=== PATIENT | female | born 1980 | race Hispanic/Latino ===

== ENCOUNTER → 2020-12-03 12:43 | Outpatient (CLI) | payer BC, SELFPAY | PROVIDERS: PCP Family Medicine; Referring Provider Family Medicine; Visit Provider Family Medicine | DX: G56.20 Lesion of ulnar nerve, unspecified upper limb (principal) | CPT/HCPCS: 95886; 95909 ==

== ENCOUNTER → 2022-10-28 13:48 | Outpatient (CLI) | payer OTHER, SELFPAY ==
--- NOTE | 2022-10-28 | DI.RAD.S_ITS ---
PROCEDURE: XR HIP W PEL IF DONE BILAT 2V INDICATIONS: BILATERAL HIP PAIN TECHNIQUE: AP pelvis with lateral view(s) of the both hip(s). COMPARISON: None. FINDINGS: Bones: No fractures or dislocations. Pelvic ring appears intact. No suspicious bony lesions. Soft tissues: The visualized bowel gas pattern is normal. No suspicious soft tissue calcifications. IMPRESSION: No acute osseous abnormality. Dictated by: Joyce Patton M.D. on 10/28/2022 at 17:11 Approved by: Joyce Patton M.D. on 10/28/2022 at 17:12
== END ==
PROVIDERS: PCP Nurse Practitioner Family; Referring Provider Nurse Practitioner Family; Visit Provider Nurse Practitioner Family
DX: M25.551 Pain in right hip (principal); M25.552 Pain in left hip
CPT/HCPCS: 73522

== ENCOUNTER → 2022-11-10 14:40 | Outpatient (CLI) | payer OTHER, SELFPAY ==
--- NOTE | 2022-11-10 | DI.MRI.S_ITS ---
PROCEDURE: MR HIP RT WO CON INDICATIONS: BILATERAL HIP pain TECHNIQUE: Noncontrast coronal T1 spin echo and STIR through the bony pelvis. Coronal and axial T2 fast spin echo with fat saturation, sagittal T1 spin echo, and oblique axial T2 fast spin echo with fat saturation through the hip. COMPARISON: [facility], CR, XR HIP W PEL IF DONE BILAT 2V, 10/28/2022, 13:59. FINDINGS: Image quality: Excellent. Bones and joints: There is mild periarticular osteophyte formation at the bilateral hip joints. Bone marrow of the pelvic ring and proximal femurs show normal signal throughout. No intraosseous lesions or fractures. No avascular necrosis of the femoral heads. The visualized lower lumbar spine appears normally aligned. Tendons and ligaments: The gluteus medius and minimus tendons appear intact, without associated muscle atrophy. The nearby proximal iliotibial band also appears intact. The iliopsoas tendon appears intact, without adjacent bursal fluid collections or evidence for impingement syndrome. The origin of the hamstring tendon is intact at the ischial tuberosity, as well as the associated sacrotuberous ligament. The straight and reflected heads of the rectus femoris muscle origin appear intact, as well as the conjoint tendon. The ligamentum teres appears intact where visualized. Labrum and cartilage: Amorphous high signal intensity diffusely throughout the right hip labrum. Cartilage surface of the femoral head appears of normal thickness. The alpha angle of the femur is within normal limits at less than 55 degrees. Soft tissues: Visualized muscles demonstrate normal bulk and internal signal. Quadratus femoris muscle demonstrates no internal edema to suggest ischiofemoral impingement. The proximal sciatic neurovascular bundle appears normal adjacent to the hamstring tendons. No free pelvic fluid. Bladder wall thickness is normal. Genitourinary structures and bowel loops appear normal where visualized. IMPRESSION: 1. 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 Dictated by: Willy Schulz M.D. on 11/10/2022 at 16:18 Transcribed by: ANNA on 11/10/2022 at 16:19 Approved by: Willy Schulz M.D. on 11/10/2022 at 16:47
--- NOTE | 2022-11-10 | DI.MRI.S_ITS ---
PROCEDURE: MR HIP LT WO CON INDICATIONS: BILATERAL HIP pain TECHNIQUE: Noncontrast coronal T1 spin echo and STIR through the bony pelvis. Coronal and axial T2 fast spin echo with fat saturation, sagittal T1 spin echo, and oblique axial T2 fast spin echo with fat saturation through the hip. COMPARISON: [facility], MR, MR HIP RT WO CON, 11/10/2022, 15:07. FINDINGS: Image quality: Excellent. Bones and joints: Periarticular osteophyte formation at the bilateral hip joints. Bone marrow of the pelvic ring and proximal femurs show normal signal throughout. No intraosseous lesions or fractures. No avascular necrosis of the femoral heads. The visualized lower lumbar spine appears normally aligned. Tendons and ligaments: The gluteus medius and minimus tendons appear intact, without associated muscle atrophy. The nearby proximal iliotibial band also appears intact. The iliopsoas tendon appears intact, without adjacent bursal fluid collections or evidence for impingement syndrome. The origin of the hamstring tendon is intact at the ischial tuberosity, as well as the associated sacrotuberous ligament. The straight and reflected heads of the rectus femoris muscle origin appear intact, as well as the conjoint tendon. The ligamentum teres appears intact where visualized. Labrum and cartilage: Amorphous high signal intensity throughout the left hip labrum. Cartilage surface of the femoral head appears of normal thickness. The alpha angle of the femur is within normal limits at less than 55 degrees. Soft tissues: Visualized muscles demonstrate normal bulk and internal signal. Quadratus femoris muscle demonstrates no internal edema to suggest ischiofemoral impingement. The proximal sciatic neurovascular bundle appears normal adjacent to the hamstring tendons. No free pelvic fluid. Bladder wall thickness is normal. Genitourinary structures and bowel loops appear normal where visualized. IMPRESSION: 1. Left hip osteoarthritis associated with left hip labral tearing. Dictated by: Willy Schulz M.D. on 11/10/2022 at 16:19 Transcribed by: ANNA on 11/10/2022 at 16:20 Approved by: Willy Schulz M.D. on 11/10/2022 at 16:51
== END ==
PROVIDERS: PCP Nurse Practitioner Family; Referring Provider Nurse Practitioner Family; Visit Provider Nurse Practitioner Family
DX: M16.0 Bilateral primary osteoarthritis of hip (principal); S73.102A Unspecified sprain of left hip, initial encounter; S73.101A Unspecified sprain of right hip, initial encounter; M25.551 Pain in right hip; M25.552 Pain in left hip
CPT/HCPCS: 73721

== ENCOUNTER → 2024-07-18 13:37 | Outpatient (CLI) | payer OTHER, SELFPAY ==
--- NOTE | 2024-07-18 13:38 | DI.US.S_ITS ---
PROCEDURE: US PELVIC COMPLETE INDICATIONS: Menorrhagia and deep dyspareunia TECHNIQUE: Real-time scanning was performed of the pelvic organs, with image documentation. Additional endovaginal scanning was necessary due to incomplete visualization of the adnexal and endometrial structures by transabdominal scanning. COMPARISON: None. FINDINGS: Uterus: Uterus is anteverted and normal in size at 5.2 x 5.8 x 10.3 cm. The myometrium is homogeneous. The endometrium measures 12.2 mm combined thickness. No uterine fibroids found. Ovaries: The right ovary measures 2.7 x 1.7 x 2.1 cm, with a calculated ovarian volume of 4.9 cc. The left ovary could not be seen due to bowel gas. The ovaries have a normal sonographic appearance. Less than 12 follicles can be seen in each ovary. No adnexal masses are seen. Other: No pathologic free abdominal or pelvic fluid. IMPRESSION: Normal appearing uterus and right ovary, nonvisualization of the left ovary due to overlying bowel gas. Dictated by: Rosendo Tavarez M.D. on 07/19/2024 at 7:33 Approved by: Rosendo Tavarez M.D. on 07/19/2024 at 7:35
== END ==
PROVIDERS: PCP Student in an Organized Health Care Education/Training Program; Referring Provider Obstetrics & Gynecology; Visit Provider Obstetrics & Gynecology
DX: N92.0 Excessive and frequent menstruation with regular cycle (principal); N94.10 Unspecified dyspareunia
CPT/HCPCS: 76830; 76856

== ENCOUNTER → 2024-09-12 09:33 | Outpatient (CLI) | payer OTHER, SELFPAY ==
--- NOTE | 2024-09-12 09:37 | DI.RAD.S_ITS ---
PROCEDURE: XR ELBOW LT MIN 3V INDICATIONS: SWELLING, MASS AND LUMP, LEFT UPPER LIMB TECHNIQUE: 3 views of the elbow were acquired. COMPARISON: None. FINDINGS: Bones: There are no osseous abnormalities. Elbow joint: Normal in width and alignment without arthritic change. There are no effusions. Soft tissues: There is mild diffuse soft swelling more prominent anteriorly. IMPRESSION: Normal elbow. Consider MRI for persistent or worrisome soft tissue mass. These are not typically well seen on plain film . Dictated by: Rickey Lynne M.D. on 09/12/2024 at 12:10 Approved by: Rickey Lynne M.D. on 09/12/2024 at 12:11
== END ==
LOC: RAD 09:36
PROVIDERS: PCP Student in an Organized Health Care Education/Training Program; Referring Provider Student in an Organized Health Care Education/Training Program; Visit Provider Student in an Organized Health Care Education/Training Program
DX: R22.32 Localized swelling, mass and lump, left upper limb (principal)
CPT/HCPCS: 73080

== ENCOUNTER 2024-10-03 07:42 | Day surgery (SDC) | payer OTHER, SELFPAY ==
[2024-08-21 08:27] VITALS: BMI 32.2
[2024-10-03] VITALS (20 sets, daily range): BP systolic 81–130; BP diastolic 46–86; PULSE 54–102; RESP 10–20; TEMP 36.6–37.2; O2SAT 90–99; BMI 35.1
--- NOTE | 2024-10-03 | PATH_ITS ---
[facility] Accession Number: [id number] No. of containers..01 Tissue . 01 Material submitted: . uterus - UTERUS, CERVIX AND FALLOPIAN TUBES . 01 Diagnosis: UTERUS, CERVIX, AND FALLOPIAN TUBES, LAPAROSCOPIC TOTAL HYSTERECTOMY, BILATERAL SALPINGECTOMY (WEIGHT 151 GRAMS): Cervix with no significant histomorphologic abnormality. Endocervix with no significant histiomorphologic abnormality. Secretory endometrium; negative for significant atypia. Myometrium with no significant histomorphologic abnormality. Uterine serosa with benign serosal inclusion cysts. Longer fallopian tube, complete cross-sections; negative for significant atypia. [place] fallopian tube, complete cross-sections, negative for significant atypia. [facility] 10/09/2024 1522 Local . 01 Electronically signed: . Brenda Curtis MD, Pathologist NPI- [id number] . 01 Gross description: . Received in formalin with two identifiers and uterus, cervix, and fallopian tubes, is an intact uterus (151 grams, 10.4 cm superior to inferior, 7.4 cm medial to lateral, 5.3 cm anterior to posterior), with attached cervix (3.4 x 3.0 cm), and two detached unoriented fimbriated fallopian tubes (5.3 x 0.9 cm and 4.9 x 0.7 cm), with no additional adnexa. . The ectocervix is mora and wrinkled with a patulous os 1.0 cm in diameter. The serosa is mora with a pale cyst like area on the fundus 1.1 x 0.6 cm. No additional lesions are identified. The anterior cervical margin is inked blue while the posterior paracervical margin is inked black. . The endocervical canal has mora herringbone mucosa and measures 3.6 cm in length. The endometrial cavity is 2.7 cm from cornu to cornu, and 5.8 cm in length with pink-mora lush endometrium that averages 0.2 cm thick. The myometrium is pink-mora and moderately trabecular up to 2.2 cm in maximum thickness with no lesions identified. . Both tubes have violaceous, smooth serosa with no cysts identified, and the lumen are stellate and unremarkable. . Italian Teacher sections are submitted as follows: A1: Anterior cervix. A2: Posterior cervix. A3: Anterior full thickness section. A4: Posterior full thickness section. A5: Area of cyst like serosa. A6: Longer fallopian tube to include one-half of bisected fimbriae and cross-sections. A7: [place] fallopian tube to include one-half of bisected fimbriae and cross-sections. ([id number]) /[facility]ONA 10/05/2024 2142 Local . 01 Pathologist provided ICD-10: N81.10, N39.3 . 01 CPT . 098406 Specimen Comment: A courtesy copy of this report has been sent to [phone] Performed at: [address] [facility] [address], [place], [place] [id number] MD Brendon Shukla MD Phone: [phone]
[2024-10-03] MEDS: ACETAMINOPHEN 325 MG TABLET 975 MG PO (07:54)
[2024-10-03] MEDS: CELECOXIB 200 MG CAPSULE PO (07:55)
[2024-10-03] MEDS: LACTATED RINGERS 1,000 ML 42 ML IV (07:55)
[2024-10-03] MEDS: GABAPENTIN 300 MG CAPSULE PO (07:55)
[2024-10-03] MEDS: FAMOTIDINE 20 MG/2 ML VIAL IV (08:26)
--- NOTE | 2024-10-03 08:50 | PM.PREOP ---
Pre-operative Note COVID-19 COVID-19 status: Not tested Interval Note History & Physical reviewed/Exam performed by Physician: Yes Changes to H&P: No
[2024-10-03] MEDS: CEFAZOLIN 2 GM/100 ML PREMIX 100 ML IV (09:26)
--- NOTE | 2024-10-03 10:01 | SUR.OPER ---
Lithotomy on padded OR bed. [place] Pad Positioner under torso. Head on pillow, arms padded and tucked at sides. Legs secured in padded yellow fins stirrups. Safety strap secured.
[2024-10-03] MEDS: BUPIVACAINE 0.5% W/ EPI (PF) 30 ML VIAL INJ (10:10)
--- NOTE | 2024-10-03 13:14 | P.OP_ITS ---
Operative Date/Time/Diagnoses Date of procedure: 10/03/24 Time of procedure: 09:30 Pre-op diagnosis: Cystocele Uterovaginal prolapse, incomplete Menorrhagia Dysmenorrhea Dyspareunia Post-op diagnosis: same Procedure & Clinicians Procedure: Procedures Operation Date: 10/03/24 09:00 Actual Procedure Side Surgeon p Laparoscopic Total Hysterectomy with bilateral salpingectomy, s Laparoscopic uterosacral ligamentvault suspension s Laparoscopic enterocele repair Emile Jones MD s Anterior Colporrhaphy Emile Jones MD s Mid-urethral sling placement with cystoscopy Emile Jones MD Indications: shivani is a 43-year-old , LMP 07/02/2024, who presents for her Pap and well- woman exam. Patient experienced menarche at age 14 and has had 2 vaginal births as well as a single section for breech. Menses have been regular throughout her reproductive years and continue to be regular but have become much heavier over the last 6-12 months. This includes passage of clots and occasional accidents/overflow. In addition she has had more in the way of pelvic cramping and recently over the last few months has developed deep dyspareunia which she has never experienced previously. Patient was treated for abnormal Paps in her 20s for which she underwent LEEP but all Paps since that time have been normal/negative according to the patient. She performs her breast self-examinations and has not noted any significant changes. She did have a breast biopsy in 2016 and had mammogram performed in 2021. She has no family history of breast cancer. She does have bilateral breast implants which are asymptomatic. Patient's pelvic pain with intercourse is deep in the pelvis and lasts for several hours after intercourse. She does not experienced postcoital bleeding or intermenstrual spotting. She is having occasional vasomotor symptoms, and brain fog. Review of systems is also positive for stress urinary incontinence which has been present since her 2nd vaginal . The patient does Kegel exercises but these have been of little benefit. We had an extended discussion regarding options for evaluating and treating her menorrhagia, dyspareunia, MISAEL symptoms, and pelvic organ prolapse. After our discussions and consideration of all options available, patient would very much like to proceed with total laparoscopic hysterectomy with bilateral salpingectomy, laparoscopic uterosacral ligament vault suspension, anterior repair, and placement of mid urethral sling with cystoscopy. She presents today for her scheduled surgery. Surgeon: Emile Jones Securities Analyst: Farideh Beltran Anesthesia Type: General Operative Notes Findings: Uterus is upper limits of normal size with diffuse enlargement and serosal lesions suggestive of adenomyosis. Fallopian tubes appear to be normal as do the ovaries. There was a single small endometrial implant in the anterior cul-de-sac which was removed with the surgical specimen. Stage II uterovaginal prolapse is noted along with stage 2-3 cystocele. Enterocele is also noted at the time of laparoscopy and repaired. The remainder of the abdomen and pelvis were normal to laparoscopic inspection. Closure Type: primary Specimen(s): left tube, right tube and uterus Applied: catheter Estimated blood loss (mL): 100 Blood products transfused: none Procedure in detail: With the patient in modified dorsal lithotomy position preparations were made by prepping and draping the patient in usual manner for vaginal surgery and insertion of Dunlap catheter. A pre-surgical time-out was then taken in accordance with [facility] [place] policy. A bivalve speculum was then placed in the vagina and the cervix visualized. A weighted speculum was inserted in the vagina and the anterior vaginal wall inspected. A Dunlap catheter was inserted in the bladder and the mid urethra was identified by palpation of the Dunlap bulb. Once the mid urethra had been identified, 2 Allis clamps were placed and the area of incision infiltrated with 0.25% Marcaine with epinephrine. A 2 cm longitudinal incision of the vaginal mucosa overlying the mid urethra was then made and using Metzenbaum scissors the dissection was carried lateral on both sides so as to be able to safely introduce the retropubic tension-free vaginal tape. The TVT needle was placed 1st on the right side followed by placement of a left up through the suprapubic skin. The needle tips were brought out through the skin and remained in place while the Dunlap catheter was removed and cystoscopy performed with findings as noted above. The TVT needles were then brought up through the suprapubic incisions and removed with suture scissors. The mid urethral sling was then appropriately positioned under the mid urethra and the plastic sleeves removed from the TVT on ce it was in correct position. The redundant portion TVT material was then excised at the skin line of the suprapubic incisions. Correct positioning of the TVT was then confirmed and the vaginal incision closed with 3-0 chromic in a running locking stitch. Pressure was maintained on the retropubic tissues for 5 minutes so as to reduce the risk subsequent bleeding or bruising. The suprapubic incisions were then closed with skin glue and inappropriate dressing was applied. The midline of the anterior vaginal mucosa was then infiltrated with 0.5% Marcaine with epinephrine and a longitudinal incision was made. The vaginal mucosa and muscularis were then dissected free on both sides to permit placement of plicating stitches in 3 layers using 2-0 Vicryl interrupted. The redundant portion of the vaginal mucosa anteriorly was then excised and the vaginal mucosa was closed with 0 Vicryl interrupted stitches. The anterior lip of the cervix was then grasped with a single-tooth tenaculum. The uterus was sounded to 7 cm, the endocervical canal dilated slightly, and a [facility] uterine manipulator with a small colpotomy cup was placed. The umbilicus was then infiltrated with 0.5% Marcaine with epinephrine. A 1 cm umbilical incision was made transversely and a Veress needle was used to insufflate the abdominal cavity with carbon dioxide. Once the abdomen was appropriately insufflated, a 5 mm trocar and sleeve were then placed through the umbilical incision. The scope was placed through the trocar and the initial assessment of the intra-abdominal contents carried out. A 2nd and 3rd 5 mm port was then placed 1st in the right mid quadrant from then the left mid quadrant by infiltration of the skin and subcutaneous tissues, a 1 cm transverse incision and insertion of the 5 mm bl adeless port. A 4th 5 mm trocar was introduced deep in the right lower quadrant in a similar fashion. Using a 4 puncture technique, the abdomen and pelvis were inspected laparoscopy and photographically documented. The uterosacral ligaments were identified on both sides and the lateral edges of the uterosacral ligaments were marked with small dots created by monopolar cautery on cutting current at 20 w so as to be able to identify the lateral margins of the uterosacral ligaments at the time of uterosacral vault suspension. Uterus is mobilized with the VCare manipulator and attention turned to the left adnexa. The distal tube was then grasped and the fimbria varicose divided after coagulation with the PowerSeal device. The dissection was then carried out toward the cornua and the fallopian tube amputated. The tube was removed through a 5 mm port and dissection was then carried down using the PowerSeal device so as to divide the utero-ovarian ligament and the round ligament with b jasmin and sharp dissection of the broad down to the level of the uterine artery. The uterine artery was then skeletonized after development of a bladder flap, coagulated, and divided. Once hemostasis was assured on the left side attention was turned to the right and the tube, utero-ovarian ligament, round ligament, and broad ligament were dissected in a fashion exactly the same as it had been on the left. The right uterine artery was then visualized after skeletonization and coagulated and divided. The uterus was seen to raul after coagulation of both your arteries and the cup was identified through the vaginal muscularis at its insertion with the body of the cervix. Circumferential excision of the vaginal cup was accomplished without difficulty using monopolar current and the uterus mobilized. The uterus was then removed through the vagina and the vaginal cuff was closed with a 2-0 Stratafix suture introduced through the vaginal canal and incorporating the distal aspects of the uterosacral ligaments on both sides. Hemostasis was excellent, the abdomen was re-insufflated, and the pelvis inspected laparoscopically. Using 2-0 Ethibond suture, 2 sutures were placed on either side so as to incorporate the more proximal portions of the uterosacral ligament on each side to the vaginal cuff. Each suture was tied securely in place with extracorporeal knot pusher. After performance of the uterosacral ligament vault suspension, the presence of a significant enterocele was obvious and therefore a Halban culdoplasty was performed with 2-0 Ethibond sutures. The pelvis was inspected for any abnormality or bleeding, and the ureters were each seen to be peristalsing freely. 20 cc of ropivacaine were instilled into the posterior cul-de-sac. With complete hemostasis assured, the pneumoperitoneum was vented and the ports removed. All of the 5 mm ports were then closed with 4-0 Monocryl on the skin using inverted interrupted sutures. Skin glue was placed and after the glue was dried, an appropriate dressing was applied. Speculum exam showed no vaginal bleeding with excellent suspension of the vaginal apex and anterior vaginal wall. The posterior vaginal wall had m inimal laxity in was not felt to warrant repair at this point. The case was then terminated, the patient awakened, and then transferred to PACU after having tolerated the procedure well. Complications: none Post-operative Condition: stable Disposition: PACU Plan for aftercare: Routine postoperative care with follow-up planned for 2 weeks postop
[2024-10-03] MEDS: fentaNYL 100 MCG/2 ML INJ IV (13:19)
[2024-10-03] MEDS: hydrOXYzine 50 MG/ML INJ 25 MG IM (13:19)
[2024-10-03] MEDS: OXYCODONE IR 5 MG TABLET PO ×3 (13:24→22:05)
[2024-10-03] MEDS: LACTATED RINGERS 1,000 ML 100 ML IV (14:44)
--- NOTE | 2024-10-03 15:12 | PC.NURSE ---
Patient up to the floor, she is resting comfortably. She has 4 lapsites to her lower abdomen and they are all cdi. She has a conroy catheter putting out clear and yellow urine. Patients obed pad has minimal spotting of red blood. She is lying supine. BS cta, 3L of oxygen as patient has some sleep apnea. at bedside.
[2024-10-03] MEDS: ACETAMINOPHEN 325 MG TABLET 650 MG PO (18:12)
[2024-10-03] MEDS: DOCUSATE 100 MG CAPSULE 200 MG PO (20:07)
[2024-10-03] MEDS: KETOROLAC 30 MG/ML VIAL IV (20:07)
[2024-10-03] MEDS: ZOLPIDEM 5 MG TABLET PO (22:05)
[2024-10-04] MEDS: LACTATED RINGERS 1,000 ML 100 ML IV (01:01)
[2024-10-04] MEDS: ACETAMINOPHEN 325 MG TABLET 650 MG PO ×3 (01:02→11:57)
[2024-10-04] MEDS: KETOROLAC 30 MG/ML VIAL IV ×2 (01:02→08:04)
[2024-10-04 08:00] VITALS: BP 133/82; PULSE 75; RESP 16; TEMP 37.1; O2SAT 99
[2024-10-04] MEDS: DOCUSATE 100 MG CAPSULE 200 MG PO (08:04)
--- NOTE | 2024-10-04 08:40 | PC.NURSE ---
Addendum entered by Kasandra More R.N. 10/04/24 11:38: Patient unable to void, she bladder scanned for 572, Dr. Jones notified and he states to put the conroy back in and do some leg bag teaching with patient on discharge as she will be going home with the catheter. Conroy is back in and patient tolerated this well. It was a bi traumatic and uncomfortable for her, she was given tylenol and oxycodone for discomofort. is in room and attentive to patients needs. Original Note: Patient is up ambulating in her room. She has 4 lapsites that are dressed with allevyn and one by umbilicus has steri strips. She complains of discomfort at 3/10, given iv toradol and stool softners. She is eating her breakfast now. After her first void we will do a pvr.
[2024-10-04] MEDS: OXYCODONE IR 5 MG TABLET PO (11:57)
--- NOTE | 2024-10-04 12:15 | PM.DS.IH.1 ---
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 Patient experienced menarche at age 14 and has had 2 vaginal births as well as a single section for breech. Menses have been regular throughout her reproductive years and continue to be regular but have become much heavier over the last 6-12 months. This includes passage of clots and occasional accidents/overflow. In addition she has had more in the way of pelvic cramping and recently over the last few months has developed deep dyspareunia which she has never experienced previously. Patient was treated for abnormal Paps in her 20s for which she underwent LEEP but all Paps since that time have been normal/negative according to the patient. She performs her breast self-examinations and has not noted any significant changes. She did have a breast biopsy in 2016 and had mammogram performed in 2021. She has no family history of breast cancer. She does have bilateral breast implants which are asymptomatic. Patient's pelvic pain with intercourse is deep in the pelvis and lasts for several hours after intercourse. She does not experienced postcoital bleeding or intermenstrual spotting. She is having occasional vasomotor symptoms, and brain fog. Review of systems is also positive for stress urinary incontinence which has been present since her 2nd vaginal . The patient does Kegel exercises but these have been of little benefit. We had an extended discussion regarding options for evaluating and treating her menorrhagia, dyspareunia, MISAEL symptoms, and pelvic organ prolapse. After our discussions and consideration of all options available, patient would very much like to proceed with total laparoscopic hysterectomy with bilateral salpingectomy, laparoscopic uterosacral ligament vault suspension, anterior repair, and placement of mid urethral sling with cystoscopy. She presents today for her scheduled surgery. Discharge Providers Provider Date of admission: 10/03/2024 Discharge Date: 10/04/24 Primary care physician: Lucio Mckoy MD Discharge provider: Emile Jones MD Summary Hospital Course Discharge Diagnosis: Uterovaginal prolapse Cystocele Stress urinary incontinence Abnormal vaginal bleeding Enterocele Postoperative urinary retention Status post total laparoscopic hysterectomy with bilateral salpingectomy, laparoscopic uterosacral ligament vault suspension, laparoscopic enterocele repair, anterior colporrhaphy, mid urethral sling placement with cystoscopy Hospital Course: Sara was admitted on the morning of 10/03/2024 and underwent an uneventful total laparoscopic hysterectomy with bilateral salpingectomy, laparoscopic uterosacral ligament vault suspension, laparoscopic enterocele repair, anterior colporrhaphy, mid urethral sling placement with cystoscopy. Full details of this procedure is well summarized on my operative note of that date. Following surgery the patient has done extremely well with prompt return of bowel function, she is ambulating independently, tolerating a regular diet, and her pain is well controlled with oral pain medication. She was unable to successfully void on the 1st morning after surgery and Dunlap catheter was replaced. She was discharged to home in an afebrile normotensive condition after counseling regarding precautionary symptoms, limitations activity, and plans for follow-up which will be in 5 days. She was provided with instructions regarding maintenance of indwelling Dunlap as well as use of a leg bag with her Dunlap. She will return on 10/08/2024 for catheter removal and instruction regarding straight catheterization if needed following catheter removal. Medications at discharge will include Cipro 500 mg p.o. b.i.d. x7 days for UTI prophylaxis following catheterization, and oxycodone 5 mg tabs, 1 p.o. Q 4-6 hours as needed for pain, dispensed 15 with no refills. Status at Discharge Cognitive/behavioral status at discharge: oriented Functional status at discharge: independent ambulation Overall status at discharge: patient is progressing back to baseline Time Spent with Patient Time spent: Less than 30 minutes Exam Vital Signs (past 8 hours): - 10/04/24 08:00 Temperature 98.7 F Pulse Rate 75 Respiratory Rate 16 Blood Pressure 133/82 Pulse Oximetry 99 Oxygen Flow Rate 0 Oxygen Delivery Method Nasal Cannula Oxygen Flow Rate 0 Const General: cooperative and comfortable Nutritional Appearance: average body habitus Orientation: alert and oriented x3 HENMT Head: normal to inspection, atraumatic and abrasion Ears: hearing grossly normal bilaterally Face and sinus: face symmetric Eyes General: appearance normal, both eyes and all related structures Conjunctivae: conjunctivae normal Sclera: sclerae normal EOM: EOM intact bilaterally Neck Neck: normal visual inspection Resp Effort & Inspection: normal respiratory effort and able to speak in complete sentences Auscultation: clear to auscultation bilaterally Cardio Rate: regular rate Rhythm: regular rhythm Heart Sounds: S1 normal, S2 normal and no murmurs GI Inspection: normal to inspection and incision (Surgical dressings clean and dry) Palpation: soft, no hepatosplenomegaly and tender (Mild, diffuse postsurgical tenderness) External Female Exam: other (No significant bleeding noted) Extrem General: no calf tenderness Psych Appearance: grossly normal Mental Status: mental status grossly normal Speech and Movement: speech and movement normal Mood: congruent mood Affect: normal affect Attitude: cooperative Thought Process: normal Thought Content: normal Judgment: judgment good [facility] Medical History (Updated 08/21/24 @ 09:40 by Megan Crawford RN) History of COVID-19 (2019) Anxiety Seborrheic dermatitis (~2022) Osteoarthritis (~2023) Sleep apnea (~2017) Asthma Labral tear of hip joint (~2022) Scoliosis (~2009) Chronic back pain (~2015) Carpal tunnel syndrome (~2020) Chicken pox (~1988) Abnormal Pap smear of cervix (~1999) Irritable bowel syndrome Diabetes mellitus MISAEL (stress urinary incontinence, female) Uterovaginal prolapse, incomplete POP-Q stage 2 cystocele Dyspareunia in female Menorrhagia with regular cycle Surgical History (Updated 08/21/24 @ 09:13 by Megan Crawford RN) History of surgery Anesthesia History of section (~2015) History of cholecystectomy (~2009) History of breast augmentation (~2006) Family History (Updated 08/11/24 @ 18:28 by Marion Virgen) Father Hypertension Hyperlipidemia Mother Diabetes mellitus History of heart disease Hyperlipidemia Hypertension Brother Diabetes mellitus Hyperlipidemia Hypertension Sister Diabetes mellitus History of heart disease Mental health problem Grandmother Cancer Social History household members: spouse and children Smoking Status: Never smoker alcohol intake: current Discharge Assessment & Plan Assessment and Plan Assessment: Uterovaginal prolapse Cystocele Stress urinary incontinence Abnormal vaginal bleeding Enterocele Postoperative urinary retention Status post total laparoscopic hysterectomy with bilateral salpingectomy, laparoscopic uterosacral ligament vault suspension, laparoscopic enterocele repair, anterior colporrhaphy, mid urethral sling placement with cystoscopy Plan of Treatment: Routine postoperative care with indwelling Dunlap x5 days. Patient will return to the office on October 08, 2024 for catheter removal and instruction regarding intermittent self catheterization should that be required. Discharge Plan Discharge Plan Patient Disposition: Home Provider Discharge Comment: Please review the written instructions you received when you were discharged from the hospital. Your follow-up appointment is scheduled for 2 weeks after your surgery and I forward to seeing then. However meanwhile you have any issues, concerns, questions, please contact me either through the office phone at [phone], or via the patient portal. Discharge orders & Medications Discharge Orders: Discharge (Order); Ordered 10/04/24 Ordered By: Emile Jones Prescriptions: New ciprofloxacin HCl [Cipro] 500 mg tablet 500 mg PO BID 7 Days Qty: 14 0RF oxycodone 5 mg tablet 5 mg PO Q4-6H PRN (Reason: pain) Qty: 15 0RF Continued scopolamine base 1 mg over 3 days patch 3 day 1 patch transdermal Q3D PRN (Reason: nausea and vomiting) Qty: 4 0RF Ozempic 2 mg/dose (8 mg/3 mL) pen injector 2 mg SUBCUT QWEEK Patient Comments: [NO ORIGINAL SIG] meloxicam 15 mg tablet 15 mg PO DAILY multivitamin [Multiple Vitamins] Tablet 1 tab PO DAILY clobetasol 0.05 % shampoo 1 applic topical 2XW mupirocin 2 % ointment 1 applic topical DAILY PRN (Reason: Rash) Medication counseling provided by Pharmacist: Yes Follow up/Referrals: Lucio Mckoy MD [Primary Care Provider] - Emile Jones MD [Physician] - Diet/Activity/Treatments Diet: Diet as Tolerated Activity: As tolerated Other treatments: [id number] Tylenol and/or ibuprofen may be used for additional pain relief. Jire-rcs-agizcrf stool softeners and/or MiraLax may be used as needed for constipation. Skin/Wound/Dressing Care Report to your healthcare provider any signs of infection, such as:: chills, fever, increased pain, unusual drainage and unusual redness Dressing: Dressings should be removed on the morning of 10/05/2024 Visit Report/Discharge Packet Instructions: How to Care for Your Dunlap Catheter -- Male, How to Catheterize Yourself -- for Women, Urinary Incontinence Surgery -- Sling Procedures, DI for Hysterectomy, DI for Laparoscopy, DI for Prescription Opioid Use, Ciprofloxacin Stand Alone Forms: Surgery Discharge Print Language: Maldivian Discharge Data Primary Care Provider: Lucio Mckoy Attending Provider: Emile Jones VTE Deep Vein Thrombosis/Pulmonary Embolism Present on Admission: No IH PROFEE Charge Codes Discharge inpatient/observation: 95374
--- NOTE | 2024-10-16 10:49 | PM.GYNHP.1 ---
History of Present Illness History of Present Illness Narrative: Sara is a 43-year-old , LMP 07/02/2024, who presents for her Pap and well-woman exam. Patient experienced menarche at age 14 and has had 2 vaginal births as well as a single section for breech. Menses have been regular throughout her reproductive years and continue to be regular but have become much heavier over the last 6-12 months. This includes passage of clots and occasional accidents/overflow. In addition she has had more in the way of pelvic cramping and recently over the last few months has developed deep dyspareunia which she has never experienced previously. Patient was treated for abnormal Paps in her 20s for which she underwent LEEP but all Paps since that time have been normal/negative according to the patient. She performs her breast self-examinations and has not noted any significant changes. She did have a breast biopsy in 2016 and had mammogram performed in 2021. She has no family history of breast cancer. She does have bilateral breast implants which are asymptomatic. Patient's pelvic pain with intercourse is deep in the pelvis and lasts for several hours after intercourse. She does not experienced postcoital bleeding or intermenstrual spotting. She is having occasional vasomotor symptoms, and brain fog. Review of systems is also positive for stress urinary incontinence which has been present since her 2nd vaginal . The patient does Kegel exercises but these have been of little benefit. We had an extended discussion regarding options for evaluating and treating her menorrhagia, dyspareunia, MISAEL symptoms, and pelvic organ prolapse. After our discussions and consideration of all options available, patient would very much like to proceed with total laparoscopic hysterectomy with bilateral salpingectomy, laparoscopic uterosacral ligament vault suspension, anterior repair, and placement of mid urethral sling with cystoscopy. She presents today for her scheduled surgery. [facility] Medical History History of COVID-19 (2019) Anxiety Seborrheic dermatitis (~2022) Osteoarthritis (~2023) Sleep apnea (~2017) Asthma Labral tear of hip joint (~2022) Scoliosis (~2009) Chronic back pain (~2015) Carpal tunnel syndrome (~2020) Chicken pox (~1988) Abnormal Pap smear of cervix (~1999) Irritable bowel syndrome Diabetes mellitus MISAEL (stress urinary incontinence, female) Uterovaginal prolapse, incomplete POP-Q stage 2 cystocele Dyspareunia in female Menorrhagia with regular cycle Surgical History S/P laparoscopic hysterectomy (10/03/24) History of surgery Anesthesia History of section (~2015) History of cholecystectomy (~2009) History of breast augmentation (~2006) Family History Father Hypertension Hyperlipidemia Mother Diabetes mellitus History of heart disease Hyperlipidemia Hypertension Brother Diabetes mellitus Hyperlipidemia Hypertension Sister Diabetes mellitus History of heart disease Mental health problem Grandmother Cancer Social History household members: spouse and children Smoking Status: Never smoker alcohol intake: current Meds Home Medications and Allergies Home Medications Medication Instructions Recorded Confirmed Type clobetasol 0.05 % shampoo 1 applic topical 2XW 07/11/24 08/21/24 History meloxicam 15 mg tablet 15 mg PO DAILY 07/11/24 10/02/24 History multivitamin (Multiple Vitamins 1 tab PO DAILY 07/11/24 08/21/24 History tablet) mupirocin 2 % topical ointment 1 applic topical DAILY PRN Rash 07/11/24 08/21/24 History semaglutide 2 mg/dose (8 mg/3 mL) 2 mg SUBCUT QWEEK 07/11/24 08/21/24 History subcutaneous pen injector (Ozempic) scopolamine base 1 mg over 3 days 1 patch transdermal Q3D PRN nausea 08/21/24 Rx transdermal patch and vomiting #4 ea oxycodone 5 mg tablet 5 mg PO Q4-6H PRN pain #15 tabs 10/04/24 Rx nitrofurantoin 100 mg PO Q12H 7 days #14 caps 10/12/24 Rx monohydrate/macrocrystals 100 mg capsule (Macrobid) ciprofloxacin HCl 500 mg tablet 500 mg PO BID 7 days #14 tabs 10/14/24 Rx (Cipro) Allergies Allergy/AdvReac Type Severity Reaction Status Date / Time No Known Drug Allergies Allergy Unverified 08/13/24 13:21 Review of Systems Review of Systems Narrative: Problem-specific ROS positives included in HPI Exam Vital Signs (past 8 hours): Oxygen Delivery Method Nasal Cannula Oxygen Flow Rate 0 Const General: cooperative and comfortable Nutritional Appearance: average body habitus Orientation: alert and oriented x3 HENMT Head: normal to inspection, atraumatic and abrasion Ears: hearing grossly normal bilaterally Face and sinus: face symmetric Eyes General: appearance normal, both eyes and all related structures Conjunctivae: conjunctivae normal Sclera: sclerae normal EOM: EOM intact bilaterally Neck Neck: normal visual inspection Resp Effort & Inspection: normal respiratory effort and able to speak in complete sentences Auscultation: clear to auscultation bilaterally Cardio Rate: regular rate Rhythm: regular rhythm Heart Sounds: S1 normal, S2 normal and no murmurs GI Inspection: normal to inspection Palpation: soft and no hepatosplenomegaly General: other (See below) Other: External Female Exam: normal external appearance (Normal for age and parity) and normal appearance of the urethra Urethra: normal appearance of the urethra and other (Marked UVJ hypermobility) Speculum Exam - Vagina: normal appearance of the vagina, normal vaginal discharge, no lesions and No vaginal bleeding Speculum Exam - Cervix: normal appearance of the cervix, cervical os open and tender (Marked, duplicates dyspareunia) Bimanual Exam- Vagina & Uterus: normal bimanual exam, tender (Marked, duplicates dyspareunia), cervical motion tenderness and tender (Moderate, right lower uterine segment, duplicates dyspareunia pain) Bimanual Exam- Adnexa, other: normal adnexae, no masses, non-tender, rectocele (Stage I), cystocele (Stage II) and vaginal apex descent (Stage I-II) Pelvic Support: cystocele (Stage II), rectocele (Stage I) and vaginal apex descent (Stage I-II) OB/External & Speculum: cervical os open and No vaginal bleeding Speculum Exam: cervical os open and no vaginal bleeding Extrem General: no calf tenderness Psych Appearance: grossly normal Mental Status: mental status grossly normal Speech and Movement: speech and movement normal Mood: congruent mood Affect: normal affect Attitude: cooperative Thought Process: normal Thought Content: normal Judgment: judgment good Assessment & Plan Assessment and plan (1) Menorrhagia with regular cycle: Status: Acute (2) Dyspareunia in female: Status: Acute (3) POP-Q stage 2 cystocele: Status: Acute (4) Uterovaginal prolapse, incomplete: Status: Acute (5) MISAEL (stress urinary incontinence, female): Status: Acute Plan Patient counseled regarding alternatives, risks, complications and potential benefits associated with total laparoscopic hysterectomy with bilateral salpingectomy, laparoscopic uterosacral vault suspension, anterior repair, and mid urethral sling placement with cystoscopy. With full understanding of the above, a written consent was executed, signed, and witnessed this date. Time-Based Coding :: 20 spent with patient and on the chart (including review of chart, obtaining history, exam, reviewing outside data, placing orders, documenting exam and treatment plan, and counseling patient) on 10/03/2024. Quality VTE Deep Vein Thrombosis/Pulmonary Embolism Present on Admission: No
== END 2024-10-04 13:34 | disposition home or self-care (01) ==
LOC: OR 07:42 → AC 07:43
PROVIDERS: PCP Student in an Organized Health Care Education/Training Program; Referring Provider Obstetrics & Gynecology; Visit Provider Obstetrics & Gynecology
PROC: 0UT94ZZ Resection of Uterus, Percutaneous Endoscopic Approach (ICD-10-PCS; CPT 57425; principal; 2024-10-03 09:00)
PROC: (CPT 57425; 2024-10-03 09:00)
PROC: 0TSD0ZZ Reposition Urethra, Open Approach (ICD-10-PCS; CPT 57425; 2024-10-03 09:00)
DX: N81.2 Incomplete uterovaginal prolapse (principal); N92.0 Excessive and frequent menstruation with regular cycle; N39.3 Stress incontinence (female) (male); N94.6 Dysmenorrhea, unspecified; N94.10 Unspecified dyspareunia; N85.8 Other specified noninflammatory disorders of uterus
CPT/HCPCS: 57425; 57288; 57240; 58571; C1771; J0690; J1100; J1885; J2250; J2405; J2704; J3010; J3410

== ENCOUNTER 2024-10-09 21:32 | Emergency (ER) | payer OTHER, SELFPAY ==
[2024-10-03 14:26] VITALS: BMI 35.1
[2024-10-09 21:35] VITALS: BP 174/99; PULSE 102; RESP 26; TEMP 37.2; O2SAT 100; BMI 32.2
[2024-10-09 22:18] LABS: Add Manual Diff / Slide Review NO; Basophils Absolute Auto 100 /uL (0-100); Basophils Percent Auto 0.7 % (0-2); Eosinophils Absolute Auto 200 /uL (0-450); Eosinophils Percent Auto 1.9 % (2-4); Hematocrit 35.7 % (36-46); Hemoglobin 12.1 g/dL (12.0-16.0); Lymphocytes Absolute Auto 2000 /uL (1100-4500); Lymphocytes Percent Auto 24.1 % (25-40); Mean Corpuscular Hemoglobin 28.7 PG (26-34); Mean Corpuscular Volume 84.4 fL (80-100); Monocytes Absolute Auto 500 /uL (0-900); Monocytes Percent Auto 5.5 % (3-14); Neutrophils Absolute Auto 5600 /uL (1500-7000); Neutrophils Percent Auto 67.8 % (50-75); Platelet Count 236 X10^3/uL (150-400); Red Blood Cell Count 4.23 X10^6/uL (4.0-5.2); Red Cell Distribution Width 13.4 % (11.6-14.8); White Blood Cell Count 8.3 X10^3/uL (4.5-11.0)
[2024-10-09 22:29] LABS: BUN Creatinine Ratio 17.9 (6-22); Blood Urea Nitrogen 14 mg/dL (7-17); Calcium 9.6 mg/dL (8.4-10.2); Carbon Dioxide 26 mmol/L (22-32); Chloride 99 mmol/L (98-107); Estimated Glomerular Filt Rate > 60 mL/min (>60); Glucose 101 mg/dL (70-100); HEMOLYSIS < 15 (0-50); Potassium 3.6 mmol/L (3.4-5.1); Sodium 133 mmol/L (137-145)
[2024-10-09] MEDS: PHENAZOPYRIDINE 100 MG TABLET PO (22:32)
[2024-10-09] MEDS: OXYCODONE/ACETAMINOPHEN 5/325 TABLET 1 TAB PO (23:38)
--- NOTE | 2024-10-10 00:29 | ED.FEMALEGU ---
HPI - Female Genitourinary General Chief complaint: Urogenital-Female Stated complaint: pain, unable to urinate s/p surgery Time Seen by Provider: 10/09/24 22:28 Source: patient Mode of arrival: Ambulatory History of Present Illness HPI Narrative: 43-year-old female status post total laparoscopic hysterectomy with bilateral salpingectomy and bladder sling performed by Dr. Jones on 10/03/2024 [facility] In the emergency department from home for urinary retention. She states that she saw Dr. Jones in the office earlier today at around 11 had her Dunlap catheter removed, states that since then she has not had a normal amount of urine output, she states she has significant amount of discomfort to her bladder, otherwise not complaining of any other symptoms. She states that she was told that she might need to do straight caths at home however was not discharged with this. Related Data Home Medications Medication Instructions Recorded Confirmed clobetasol 0.05 % shampoo 1 applic topical 2XW 07/11/24 08/21/24 meloxicam 15 mg tablet 15 mg PO DAILY 07/11/24 10/02/24 multivitamin (Multiple Vitamins 1 tab PO DAILY 07/11/24 08/21/24 tablet) mupirocin 2 % topical ointment 1 applic topical DAILY PRN Rash 07/11/24 08/21/24 semaglutide 2 mg/dose (8 mg/3 mL) 2 mg SUBCUT QWEEK 07/11/24 08/21/24 subcutaneous pen injector (Ozempic) Previous Rx's Medication Instructions Recorded scopolamine base 1 mg over 3 days 1 patch transdermal Q3D PRN nausea 08/21/24 transdermal patch and vomiting #4 ea ciprofloxacin HCl 500 mg tablet 500 mg PO BID 7 days #14 tabs 10/04/24 (Cipro) oxycodone 5 mg tablet 5 mg PO Q4-6H PRN pain #15 tabs 10/04/24 phenazopyridine 200 mg tablet 200 mg PO TID PRN pain 2 days #6 10/10/24 (Pyridium) tabs Allergies Allergy/AdvReac Type Severity Reaction Status Date / Time No Known Drug Allergies Allergy Unverified 08/13/24 13:21 Review of Systems Review of Systems Narrative: General: Denies fever, chills, weight loss HEENT: Denies headache, eye drainage, eye irritation, head trauma, sore throat, voice change Cardiovascular: Denies any chest pain, palpitations, tachycardia Respiratory: Denies any shortness of breath, cough, wheeze, stridor GI/: Positive urinary retention Denies any abdominal pain, nausea, vomiting, diarrhea, bright red blood per rectum, melanotic stools, urinary frequency, dysuria, hematuria MSK: Denies any joint pain, muscle pains, swelling Skin: Denies any rashes, lesions, discoloration Neuro: Denies any headache, lightheadedness, dizziness, fainting, weakness Psych: Denies SI/HI Patient History Medical History (Updated 10/10/24 @ 00:44 by Jori Mercer DO) History of COVID-19 (2019) Anxiety Seborrheic dermatitis (~2022) Osteoarthritis (~2023) Sleep apnea (~2017) Asthma Labral tear of hip joint (~2022) Scoliosis (~2009) Chronic back pain (~2015) Carpal tunnel syndrome (~2020) Chicken pox (~1988) Abnormal Pap smear of cervix (~1999) Irritable bowel syndrome Diabetes mellitus MISAEL (stress urinary incontinence, female) Uterovaginal prolapse, incomplete POP-Q stage 2 cystocele Dyspareunia in female Menorrhagia with regular cycle Surgical History (Updated 08/21/24 @ 09:13 by Megan Crawford RN) History of surgery Anesthesia History of section (~2015) History of cholecystectomy (~2009) History of breast augmentation (~2006) Family History (Updated 08/11/24 @ 18:28 by Marion Virgen) Father Hypertension Hyperlipidemia Mother Diabetes mellitus History of heart disease Hyperlipidemia Hypertension Brother Diabetes mellitus Hyperlipidemia Hypertension Sister Diabetes mellitus History of heart disease Mental health problem Grandmother Cancer Exam Narrative Exam Narrative: General: Cooperative, well-developed, not in acute distress HEENT: Normocephalic, atraumatic, PERRLA, normal sclera, eyelids normal Neck: Active full range of motion, atraumatic Chest: Normal to inspection, negative crepitus, no overlying erythema ecchymosis Respiratory: Normal respiratory effort, not in acute respiratory distress, clear to auscultation bilaterally negative cough, wheeze, tachypnea, rhonchi, rales Cardiology: Regular rate rhythm negative gallop, murmur, rubs GI/: Mild tenderness to palpation to the abdomen bilaterally consistent with the patient's recent abdominal surgery, Dunlap catheter in place draining appropriate colored urine MSK: Full active range of motion in all 4 extremities, atraumatic, no tenderness to palpation of any bony prominences Skin: No rashes or lesions noted Neuro: Alert awake oriented x3, moves all 4 extremities spontaneously, cranial nerves intact, able to answer all questions appropriately follows commands appropriately Psych: Cooperative, negative suicidal or homicidal ideations Initial Vital Signs Initial Vital Signs: Vital Signs Temperature 99 F 10/09/24 21:35 Pulse Rate 102 H 10/09/24 21:35 Respiratory Rate 26 H 10/09/24 21:35 Blood Pressure 174/99 H 10/09/24 21:35 Pulse Oximetry 100 10/09/24 21:35 Oxygen Delivery Method Room Air 10/09/24 21:35 Course Orders Ordered: ED Orders 10/09/24 22:00 Basic Metabolic Panel Stat Complete Blood Count AUTO DIFF Stat Discontinued Medications Oxycodone/Acetaminophen (Oxycodone/Acetaminophen 5/325 Tablet) 1 tab PO NOW ONE Stop: 10/09/24 23:35 Last Admin: 10/09/24 23:38 Dose: 1 tab Documented By: LISANDRO Phenazopyridine HCl (Phenazopyridine 100 Mg Tablet) 100 mg PO NOW ONE Stop: 10/09/24 22:29 Last Admin: 10/09/24 22:32 Dose: 100 mg Documented By: APOORVA Vital Signs Vital signs: Vital Signs - 8 hr 10/09/24 21:35 Temperature 99 F Pulse Rate 102 H Respiratory Rate 26 H Blood Pressure 174/99 H Pulse Oximetry 100 Oxygen Delivery Method Room Air MDM - Female Genitourinary Differential Diagnosis Differential diagnosis: Likely other (Urinary retention) Lab Data 10/09/24 22:00 10/09/24 22:00 Labs: Lab Results 10/09/24 Range/Units 22:00 WBC 8.3 (4.5-11.0) X10^3/uL RBC 4.23 (4.0-5.2) X10^6/uL Hgb 12.1 (12.0-16.0) g/dL Hct 35.7 L (36-46) % MCV 84.4 (80-100) fL MCH 28.7 (26-34) PG MCHC 34.0 (30-36) % RDW 13.4 (11.6-14.8) % Plt Count 236 (150-400) X10^3/uL Neut % (Auto) 67.8 (50-75) % Lymph % (Auto) 24.1 L (25-40) % Dubois % (Auto) 5.5 (3-14) % Eos % (Auto) 1.9 L (2-4) % Baso % (Auto) 0.7 (0-2) % Neut # (Auto) 5600 (7674-8568) /uL Lymph # (Auto) 2000 (2153-6218) /uL Dubois # (Auto) 500 (0-900) /uL Eos # (Auto) 200 (0-450) /uL Baso # (Auto) 100 (0-100) /uL Sodium 133 L (137-145) mmol/L Potassium 3.6 (3.4-5.1) mmol/L Chloride 99 (98-107) mmol/L Carbon Dioxide 26 (22-32) mmol/L BUN 14 (7-17) mg/dL Creatinine 0.78 (0.52-1.04) mg/dL Estimated GFR > 60 (>60) mL/min BUN/Creatinine Ratio 17.9 (6-22) Glucose 101 H (70-100) mg/dL Calcium 9.6 (8.4-10.2) mg/dL MDM Narrative Medical decision making narrative: 43-year-old female status post bladder sling and laparoscopic hysterectomy Dr. Jones presents for urinary retention. She states that she had a Dunlap catheter in previously she had this removed yesterday on 10/09/2024 at around 11:00 a.m.. She states that since then she has had day uro/very little urination. She presents complaining of significant amount of distention. Patient had Dunlap catheter placed did drain proximally 2 L. after this patient had significant relief of her symptoms, she will be sent home with Dunlap catheter in place and instructed follow up with Dr. Jones. She will be also sent home with Pyridium for pain management. She verbalized understanding of this and agrees to being discharged home with outpatient follow up Discharge Plan Departure Patient Disposition: Home Clinical Impression: Acute urinary retention Instructions: How to Care for Your Dunlap Catheter -- Female Activity Restrictions/Additional Instructions: Please follow up with your OBGYN Please read the discharge instructions sheet carefully and bring all papers to all doctor follow-up visits, as it may contain information that your doctor may want to see. Disease processes change and evolve, if your symptoms worsen or if you develop any new symptoms that are concerning to you please return for evaluation. Your evaluation today does not show any evidence of any life-threatening/serious illnesses requiring admission to the hospital or surgery. Please follow-up with your doctor for re-evaluation in approximately 1 day. Seek immediate medical attention for any worrisome symptoms. *If you do not have a primary care provider please contact the [facility] Resource line at [phone]. They will ask some questions about your medical history and help get you set up with a doctor in the community. Prescriptions: New phenazopyridine [Pyridium] 200 mg tablet 200 mg PO TID PRN (Reason: pain) 2 Days Qty: 6 0RF No Action scopolamine base 1 mg over 3 days patch 3 day 1 patch transdermal Q3D PRN (Reason: nausea and vomiting) Qty: 4 0RF Ozempic 2 mg/dose (8 mg/3 mL) pen injector 2 mg SUBCUT QWEEK Patient Comments: [NO ORIGINAL SIG] meloxicam 15 mg tablet 15 mg PO DAILY multivitamin [Multiple Vitamins] Tablet 1 tab PO DAILY clobetasol 0.05 % shampoo 1 applic topical 2XW mupirocin 2 % ointment 1 applic topical DAILY PRN (Reason: Rash) ciprofloxacin HCl [Cipro] 500 mg tablet 500 mg PO BID 7 Days Qty: 14 0RF oxycodone 5 mg tablet 5 mg PO Q4-6H PRN (Reason: pain) Qty: 15 0RF Referrals: Lucio Mckoy MD [Primary Care Provider] - Stand Alone Forms: Patient Portal/API/Survey
[2024-10-10 00:42] VITALS: BP 126/58; PULSE 80; RESP 16; O2SAT 98
[2024-10-10] MEDS: OXYCODONE/APAP 5/325 PREPACK 1 BOTTLE MISC (00:45)
== END 2024-10-10 00:49 | disposition home or self-care (01) ==
PROVIDERS: Emergency Provider Student in an Organized Health Care Education/Training Program; PCP Student in an Organized Health Care Education/Training Program
DX: R33.8 Other retention of urine (principal)
CPT/HCPCS: 80048; 85025; 99283

== ENCOUNTER 2024-10-17 11:50 | Day surgery (SDC) | payer OTHER, SELFPAY ==
[2024-10-03 14:26] VITALS: BMI 35.1
[2024-10-16 08:41] VITALS: BMI 32.2
[2024-10-17] VITALS (14 sets, daily range): BP systolic 117–132; BP diastolic 55–88; PULSE 72–101; RESP 10–22; TEMP 34.7–37.7; O2SAT 95–100; BMI 32.2
[2024-10-17] MEDS: LACTATED RINGERS 1,000 ML 42 ML IV (12:41)
[2024-10-17] MEDS: ACETAMINOPHEN IV 1,000 MG/100 ML VIAL 400 MG IV (12:43)
[2024-10-17] MEDS: FAMOTIDINE 20 MG/2 ML VIAL IV (13:08)
--- NOTE | 2024-10-17 13:20 | SUR.PREOP ---
Patient opted to have catheter placed at this time, will wait until procedure time. 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
--- NOTE | 2024-10-17 13:44 | PM.PREOP ---
Pre-operative Note COVID-19 COVID-19 status: Not tested Interval Note History & Physical reviewed/Exam performed by Physician: Yes Changes to H&P: No
[2024-10-17] MEDS: CEFAZOLIN 2 GM/100 ML PREMIX 100 ML IV (14:10)
--- NOTE | 2024-10-17 14:28 | SUR.OPER ---
Lithotomy on padded OR bed. Oriska Pad Positioner under torso. Head on pillow, arms padded and tucked at sides. Legs secured in padded yellow fins stirrups.
[2024-10-17] MEDS: BUPIVACAINE 0.5% W/ EPI (PF) 30 ML VIAL INJ (14:32)
--- NOTE | 2024-10-17 14:45 | P.OP_ITS ---
Operative Date/Time/Diagnoses Date of procedure: 10/17/24 Time of procedure: 13:45 Pre-op diagnosis: Urinary retention following surgical procedure Post-op diagnosis: same Procedure & Clinicians Procedure: Procedures Operation Date: 10/17/24 13:00 Actual Procedure Side Surgeon p Revision Mid Urethral Sling Emile Jones MD Indications: Sara underwent an uncomplicated mid urethral sling placement on 10/03/2024. Unfortunately since that time she has not been able to effectively void and has had to rely on self catheterization to be able to empty her bladder. After a 10 day trial of self catheterization without relief of her urinary retention, she is undergoing sling revision at this time. Surgeon: Emile Jones Anesthesia Type: General Operative Notes Findings: Normal findings status post previous mid urethral sling placement. Closure Type: primary Specimen(s): none Estimated blood loss (mL): 5 Blood products transfused: none Procedure in detail: With the patient under satisfactory general anesthesia in the modified dorsal lithotomy position, the perineum, vagina, and lower abdomen were prepped and draped in the usual manner for vaginal surgery. A pre-surgical safety time-out was then taken in accordance with [facility] OR protocols. A Dunlap catheter was inserted in the bladder and a weighted speculum was inserted in the vagina. The suture line at the site of TVT placement was then taken down with Metzenbaum scissors and Allis clamps placed on both sides so as to be able to expose the TVT sling. The sling was easily visualized and a right angle clamp was used to lyse early adhesion formation underneath the urethra. A 1 cm segment of the suburethral portion of the TVT sling was then excised and discarded. There was no significant bleeding. The vaginal incision was then reclosed with 3-0 chromic catgut suture in a running interlocking stitch. The weighted speculum was then removed from the vagina, the patient awakened from anesthesia, and transferred to the PACU for a period of observation and recovery. Complications: none Post-operative Condition: stable Disposition: PACU Plan for aftercare: Routine postoperative care. Patient will be discharged from the PACU today after she demonstrates the ability to effectively void and has a normal postvoid residual by bladder scan
--- NOTE | 2024-10-17 15:19 | SUR.OPER ---
During vaginal prep prior to conroy cath insertion, noted white discharge. MD informed.
[2024-10-17] MEDS: ONDANSETRON 4 MG/2 ML INJ IV (15:20)
[2024-10-17] MEDS: OXYCODONE IR 5 MG TABLET PO (15:27)
[2024-10-17] MEDS: LACTATED RINGERS 1,000 ML 1000 ML IV (15:38)
[2024-10-17] MEDS: hydrOXYzine 50 MG/ML INJ 25 MG IM (15:40)
--- NOTE | 2024-10-17 17:03 | SUR.PHASEII ---
patient tried to urinate and was able to urinate 100cc. She denies discomfort or the urge to urinate. Bladder scan showed 600-[address] Jones called and would like to give the patient more time to try and urinate. Patient agrees with this plan. Will continue to monitor.
--- NOTE | 2024-10-17 17:44 | SUR.PHASEII ---
Patient did attempt to urinate again with only 50 cc urine output. repeat bladder scan between 600-700
--- NOTE | 2024-10-17 18:11 | P.PN_ITS ---
Subjective Subjective Date Patient Seen: 10/17/24 Time Patient Seen: 18:11 Interval history: Patient continues to have difficulty with effective micturation. PVR remains unacceptably high despite patient now being able to more effectively void. Will admit to observation status overnight and initiate urecholine in anticipation that effective voiding will return overnight. Exam Vital Signs (past 8 hours): - 10/17/24 12:16 10/17/24 14:49 10/17/24 14:53 Temperature 94.4 F L 98.2 F 98.1 F Pulse Rate 72 97 H 95 H Respiratory Rate 17 15 13 Blood Pressure 119/83 119/81 122/74 Pulse Oximetry 99 95 98 Oxygen Delivery Method Room Air Room Air Room Air 10/17/24 14:55 10/17/24 15:00 10/17/24 15:05 Temperature Pulse Rate 101 H 87 82 Respiratory Rate 20 17 16 Blood Pressure 121/61 117/80 122/76 Pulse Oximetry 97 99 98 Oxygen Delivery Method Room Air Room Air Room Air 10/17/24 15:10 10/17/24 15:15 10/17/24 15:20 Temperature Pulse Rate 80 79 74 Respiratory Rate 10 L 12 16 Blood Pressure 132/55 L 126/86 127/88 Pulse Oximetry 99 98 100 Oxygen Delivery Method Room Air Room Air Room Air 10/17/24 15:29 10/17/24 16:14 10/17/24 17:52 Temperature 99.9 F H 98.5 F Pulse Rate 80 79 86 Respiratory Rate 22 16 16 Blood Pressure 128/73 130/86 122/79 Pulse Oximetry 100 98 97 Oxygen Delivery Method Room Air Room Air Room Air Oxygen Delivery Method Room Air [facility] Medical History History of COVID-19 (2019) Anxiety Seborrheic dermatitis (~2022) Osteoarthritis (~2023) Sleep apnea (~2017) Asthma Labral tear of hip joint (~2022) Scoliosis (~2009) Chronic back pain (~2015) Carpal tunnel syndrome (~2020) Chicken pox (~1988) Abnormal Pap smear of cervix (~1999) Irritable bowel syndrome Diabetes mellitus MISAEL (stress urinary incontinence, female) Uterovaginal prolapse, incomplete POP-Q stage 2 cystocele Dyspareunia in female Menorrhagia with regular cycle Surgical History S/P laparoscopic hysterectomy (10/03/24) History of surgery Anesthesia History of section (~2015) History of cholecystectomy (~2009) History of breast augmentation (~2006) Family History Father Hypertension Hyperlipidemia Mother Diabetes mellitus History of heart disease Hyperlipidemia Hypertension Brother Diabetes mellitus Hyperlipidemia Hypertension Sister Diabetes mellitus History of heart disease Mental health problem Grandmother Cancer Social History household members: spouse and children Smoking Status: Never smoker alcohol intake: current Assessment & Plan Post-op Postoperative Procedures: Procedures Operation Date: 10/17/24 13:00 Actual Procedure Side Surgeon p Revision Mid Urethral Sling Emile Jones MD Postoperative day: 0 Postoperative status: urinary retention Postoperative status narrative: See above Postoperative plan: see orders Time Spent With Patient Time with patient: less than 15 minutes
[2024-10-17] MEDS: BETHANECHOL CHLORIDE 5 MG TABLET 10 MG PO (18:17)
--- NOTE | 2024-10-17 19:00 | PC.NURSE ---
1820: Patient brought to post unit from PACU. Bladder scan done and residual amount was 1000+. Straight cath done at 1840. 1250cc of urine returned. Post cath scan volume of 0cc.
--- NOTE | 2024-10-17 19:16 | PC.NURSE ---
postop 1830- pt comes to [facility] after inability to void. post op bladder revision. PVR of greater than 1000cc, straight cathed for 1250cc clear UOP. denies pain. advised pt to get OOB in 1 hour to empty bladder and q 2 hours through the night.
[2024-10-17] MEDS: BETHANECHOL CHLORIDE 5 MG TABLET PO ×5 (19:24→23:40)
[2024-10-17] MEDS: ACETAMINOPHEN 325 MG TABLET 650 MG PO (21:30)
[2024-10-17] MEDS: CIPROFLOXACIN 250 MG TABLET 500 MG PO (21:31)
[2024-10-17] MEDS: ZOLPIDEM 5 MG TABLET PO (23:51)
[2024-10-18] MEDS: BETHANECHOL CHLORIDE 5 MG TABLET PO (00:32)
[2024-10-18] MEDS: ACETAMINOPHEN 325 MG TABLET 650 MG PO ×3 (03:35→14:54)
[2024-10-18 04:06] VITALS: BP 107/67; PULSE 76; RESP 16; TEMP 36.3; O2SAT 97
[2024-10-18] MEDS: TAMSULOSIN 0.4 MG CAPSULE PO (04:19)
[2024-10-18 07:00] VITALS: BP 133/85; PULSE 85; RESP 17; TEMP 37; O2SAT 98
[2024-10-18] MEDS: IBUPROFEN 600 MG TABLET PO ×2 (08:50→14:54)
[2024-10-18] MEDS: CIPROFLOXACIN 250 MG TABLET 500 MG PO (08:50)
--- NOTE | 2024-10-18 10:46 | PC.NURSE ---
emptied 800 clear yellow UOP from hat in toilet, pt states it was from several voids. requesting ice pack for lower abdomen cramping, given.
[2024-10-18 11:00] VITALS: BP 137/81; PULSE 85; RESP 19; TEMP 37.3; O2SAT 99
--- NOTE | 2024-10-18 12:44 | P.DS_ITS ---
History of Present Illness History of Present Illness Date Patient Seen: 10/18/24 Time Patient Seen: 12:44 Chief complaint: Urinary retention following mid urethral sling Narrative: Sara underwent an uncomplicated mid urethral sling placement on 10/03/2024. Unfortunately since that time she has not been able to effectively void and has had to rely on self catheterization to be able to empty her bladder. After a 10 day trial of self catheterization without relief of her urinary retention, she is undergoing sling revision at this time. Discharge Providers Provider Date of admission: 10/17/24 18:01 Discharge Date: 10/18/24 Primary care physician: Lucio Mckoy MD Discharge provider: Emile Jones MD Summary Hospital Course Discharge Diagnosis: Urinary retention following surgical procedure Status post mid urethral sling revision Hospital Course: Sara was admitted on the afternoon of 10/17/2024 underwent an uneventful mid urethral sling revision. Full details of the procedure well summarized on my operative note of that date. Following her mid urethral sling revision, she was still unable to void effectively despite initial administration of Urecholine. Flomax 0.4 mg was added to the regimen and patient's ability to empty her bladder has gradually improved to the point where she is now able to void effectively. She will be discharged at this time to home after counseling regarding precautionary symptoms, limitations of activity, medications, and plans for follow-up. Medications will include resumption of all preadmission medications as well as Flomax 0.4 mg p.o. q.d. times 10 days. In addition she will complete her ongoing courses of ciprofloxacin and nitrofurantoin. Follow- up will be in 2 weeks or as needed. Status at Discharge Cognitive/behavioral status at discharge: oriented Functional status at discharge: independent ambulation Overall status at discharge: patient is progressing back to baseline Time Spent with Patient Time spent: Less than 30 minutes Exam Vital Signs (past 8 hours): - 10/18/24 07:00 Temperature 98.6 F Pulse Rate 85 Respiratory Rate 17 Blood Pressure 133/85 Pulse Oximetry 98 Oxygen Delivery Method Room Air Const General: cooperative and comfortable Nutritional Appearance: average body habitus Orientation: alert and oriented x3 HENMT Head: normal to inspection, atraumatic and abrasion Ears: hearing grossly normal bilaterally Face and sinus: face symmetric Eyes General: appearance normal, both eyes and all related structures Conjunctivae: conjunctivae normal Sclera: sclerae normal EOM: EOM intact bilaterally Neck Neck: normal visual inspection Resp Effort & Inspection: normal respiratory effort and able to speak in complete sentences GI Inspection: normal to inspection Palpation: soft and no hepatosplenomegaly External Female Exam: other (No significant bleeding noted) Extrem General: no calf tenderness Psych Appearance: grossly normal Mental Status: mental status grossly normal Speech and Movement: speech and movement normal Mood: congruent mood Affect: normal affect Attitude: cooperative Thought Process: normal Thought Content: normal Judgment: judgment good [facility] Medical History History of COVID-19 (2019) Anxiety Seborrheic dermatitis (~2022) Osteoarthritis (~2023) Sleep apnea (~2017) Asthma Labral tear of hip joint (~2022) Scoliosis (~2009) Chronic back pain (~2015) Carpal tunnel syndrome (~2020) Chicken pox (~1988) Abnormal Pap smear of cervix (~1999) Irritable bowel syndrome Diabetes mellitus MISAEL (stress urinary incontinence, female) Uterovaginal prolapse, incomplete POP-Q stage 2 cystocele Dyspareunia in female Menorrhagia with regular cycle Surgical History S/P laparoscopic hysterectomy (10/03/24) History of surgery Anesthesia History of section (~2015) History of cholecystectomy (~2009) History of breast augmentation (~2006) Family History Father Hypertension Hyperlipidemia Mother Diabetes mellitus History of heart disease Hyperlipidemia Hypertension Brother Diabetes mellitus Hyperlipidemia Hypertension Sister Diabetes mellitus History of heart disease Mental health problem Grandmother Cancer Social History household members: spouse and children Smoking Status: Never smoker alcohol intake: current Discharge Assessment & Plan Assessment and Plan Assessment: Urinary retention following surgical procedure Status post mid urethral sling revision Plan of Treatment: Patient will continue routine postoperative care and has been counseled regarding self catheterization in the event voiding becomes impossible again following release of the TVT. Follow-up is scheduled for 2 weeks after her surgery. Discharge Plan Discharge Plan Patient Disposition: Home Provider Discharge Comment: Please review the written instructions you received when you were discharged from the hospital. Your follow-up appointment is scheduled for 2 weeks after your procedure and I look forward to seeing you then. If however in the meanwhile you have any questions, concerns, or other issues, please contact me directly via my cell phone at [phone]. Nursing Discharge Comment: You received 975mg of Tylenol at 115pm, next dose at 715pm. Do not exceed 3000mg in 24 hours. You received Ketorolac at 230pm (like Ibuprofen), next dose of Ibuprofen due at 830pm. You received 5 mg Oxycodone at 330pm. take OTC stool softeners (Docusate) while on narcotic pain medications. Discharge orders & Medications Prescriptions: New tamsulosin [Flomax] 0.4 mg capsule 0.4 mg PO DAILY 10 Days Qty: 10 0RF Continued scopolamine base 1 mg over 3 days patch 3 day 1 patch transdermal Q3D PRN (Reason: nausea and vomiting) Qty: 4 0RF nitrofurantoin monohyd/m-cryst [Macrobid] 100 mg capsule 100 mg PO Q12H 7 Days Qty: 14 0RF Rx Instructions: must administer with a meal/food ciprofloxacin HCl [Cipro] 500 mg tablet 500 mg PO BID 7 Days Qty: 14 0RF Ozempic 2 mg/dose (8 mg/3 mL) pen injector 2 mg SUBCUT QWEEK Patient Comments: [NO ORIGINAL SIG] meloxicam 15 mg tablet 15 mg PO DAILY multivitamin [Multiple Vitamins] Tablet 1 tab PO DAILY clobetasol 0.05 % shampoo 1 applic topical 2XW oxycodone 5 mg tablet 5 mg PO Q4-6H PRN (Reason: pain) Qty: 15 0RF ibuprofen 800 mg Tablet 800 mg PO Q8H PRN (Reason: Pain (Scale Score 4-6)) acetaminophen 500 mg Tablet 1,000 mg PO Q8H PRN (Reason: Pain (Scale Score 4-6)) Follow up/Referrals: Lucio Mckoy MD [Primary Care Provider] - Emile Jones MD [Physician] - Diet/Activity/Treatments Diet: Diet as Tolerated Activity: As tolerated Other treatments: [id number] Tylenol and/or ibuprofen they be used for additional pain relief. Skin/Wound/Dressing Care Report to your healthcare provider any signs of infection, such as:: chills, fever, increased pain and unusual drainage Dressing: N/A Visit Report/Discharge Packet Instructions: Tamsulosin Discharge Data Primary Care Provider: Lucio Mckoy Attending Provider: Emile Jones Admit Date/Time: 10/17/24 18:01 PROFEE Charge Codes Discharge inpatient/observation: [id number]
--- NOTE | 2024-10-18 13:17 | DI.RAD.S_ITS ---
PROCEDURE: XR CHEST 1V INDICATIONS: Fever, SOB TECHNIQUE: One view of the chest was acquired. COMPARISON: None. FINDINGS: Surgical changes and devices: None. Lungs and pleura: Lungs are clear. No pleural effusions or pneumothorax. Mediastinum: Mediastinal contours appear normal. Heart size is normal. Bones and chest wall: No suspicious bony lesions. Overlying soft tissues appear unremarkable. IMPRESSION: No acute cardiopulmonary abnormality is seen. Dictated by: Rosendo Tavarez M.D. on 10/18/2024 at 13:41 Approved by: Rosendo Tavarez M.D. on 10/18/2024 at 13:44
[2024-10-18 13:49] LABS: Add Manual Diff / Slide Review NO; Basophils Absolute Auto 0 /uL (0-100); Basophils Percent Auto 0.2 % (0-2); Eosinophils Absolute Auto 0 /uL (0-450); Eosinophils Percent Auto 0.1 % (2-4); Hemoglobin 12.4 g/dL (12.0-16.0); Lymphocytes Absolute Auto 1700 /uL (1100-4500); Lymphocytes Percent Auto 10.1 % (25-40); Mean Corpuscular HGB Conc 33.5 % (30-36); Mean Corpuscular Hemoglobin 28.5 PG (26-34); Monocytes Absolute Auto 1100 /uL (0-900); Monocytes Percent Auto 6.9 % (3-14); Neutrophils Absolute Auto 13800 /uL (1500-7000); Neutrophils Percent Auto 82.7 % (50-75); Platelet Count 308 X10^3/uL (150-400); Red Blood Cell Count 4.36 X10^6/uL (4.0-5.2); Red Cell Distribution Width 13.8 % (11.6-14.8); White Blood Cell Count 16.7 X10^3/uL (4.5-11.0)
[2024-10-18 14:00] VITALS: TEMP 36.6
== END 2024-10-18 16:05 | disposition home or self-care (01) ==
LOC: OR 16:12 → AC 18:11 → LABOR 10-18 06:14
PROVIDERS: PCP Student in an Organized Health Care Education/Training Program; Referring Provider Obstetrics & Gynecology; Visit Provider Obstetrics & Gynecology
PROC: 0TSD0ZZ Reposition Urethra, Open Approach (ICD-10-PCS; CPT 57287; principal; 2024-10-17 13:00)
DX: N99.89 Other postprocedural complications and disorders of genitourinary system (principal); R33.9 Retention of urine, unspecified
CPT/HCPCS: 57287; 36415; 71045; 85025; G0378; J0131; J0690; J1100; J1885; J2250; J2405; J2704; J3410

== ENCOUNTER → 2025-01-27 08:56 | Outpatient (CLI) | payer OTHER, SELFPAY ==
[2024-10-17 19:30] VITALS: BMI 32.2
[2025-01-13 13:37] VITALS: BMI 32.2
--- NOTE | 2025-01-27 08:56 | DI.US.S_ITS ---
PROCEDURE: US EXTREMITY NONVASC UPPER LT INDICATIONS: SWELLING,MASS AND LUMP LEFT UPPER TECHNIQUE: Real-time scanning was performed of the left upper extremity , with image documentation. COMPARISON: None. FINDINGS AND IMPRESSION: At the area of clinical concern in the left upper extremity, there is a subcutaneous isoechoic nodule measuring 4.7 x 2.5 x 1.1 cm, probably a lipoma. Clinical followup is recommended. If there is new or worsening clinical concern, reimaging or sampling could be obtained. Dictated by: Bhupinder Morin M.D. on 01/27/2025 at 9:34 Approved by: Bhupinder Morin M.D. on 01/27/2025 at 10:03
== END ==
LOC: US 08:56
PROVIDERS: PCP Student in an Organized Health Care Education/Training Program; Referring Provider Student in an Organized Health Care Education/Training Program; Visit Provider Student in an Organized Health Care Education/Training Program
DX: R22.32 Localized swelling, mass and lump, left upper limb (principal)
CPT/HCPCS: 76882

== ENCOUNTER → 2025-06-06 11:52 | Outpatient (CLI) | payer OTHER, SELFPAY ==
[2025-01-13 13:37] VITALS: BMI 32.2
--- NOTE | 2025-06-06 11:55 | DI.RAD.S_ITS ---
PROCEDURE: XR KNEE RT 1TO2V INDICATIONS: pain in right knee TECHNIQUE: 2 views of the knee were acquired. COMPARISON: None. FINDINGS: Bones: No fractures or dislocations. No suspicious bony lesions. Mild patellofemoral compartment predominant degenerative arthrosis. Soft tissues: No joint effusion. No suspicious soft tissue calcifications. IMPRESSION: No acute bony abnormality or significant effusion. Dictated by: Niall Su M.D. on 06/06/2025 at 12:31 Approved by: Niall Su M.D. on 06/06/2025 at 12:31
== END ==
PROVIDERS: PCP Student in an Organized Health Care Education/Training Program; Referring Provider Student in an Organized Health Care Education/Training Program; Visit Provider Student in an Organized Health Care Education/Training Program
DX: M25.561 Pain in right knee (principal)
CPT/HCPCS: 73560